=== PATIENT | female | born 1980 | race Caucasian/White ===

== ENCOUNTER 2017-01-13 20:38 | Emergency (ER) | payer SELFPAY ==
[2017-01-14 00:26] LABS: CALCIUM 8.4 mg/dL (8.5-10.1); CARBON DIOXIDE 19.7 mmol/L (21-32); CHLORIDE SERUM 100 mmol/L (98-107); CREATININE SERUM 0.6 mg/dL (0.6-1.0); GFR1 > 60 mL/min; GLUCOSE SERUM 160 mg/dL (74-106); POTASSIUM SERUM 3.6 mmol/L (3.5-5.1); SODIUM SERUM 134 mmol/L (136-145)
[2017-01-14 00:31] LABS: ALKALINE PHOSPHATASE 60 U/L (46-116); BILIRUBIN TOTAL 0.3 mg/dL (0.20-1.00); LIPASE 78 IU/L (73-393); TOTAL PROTEIN, SERUM 7.3 g/dL (6.4-8.2)
[2017-01-14 00:39] LABS: ALBUMIN 3.2 g/dL (3.4-5.0)
[2017-01-14 00:42] LABS: BASOPHIL % 0.5 % (0-2); PLATELET COUNT 237 x10^3mcL (130-400); RED CELL DISTRIBUTION WIDTH 12.9 % (11.5-14.5)
[2017-01-14 00:43] LABS: ALT/SGPT 54 U/L (14-59); AST/SGOT 9 U/L (15-37)
[2017-01-14 01:49] VITALS: BP 124/81
== END 2017-01-14 01:49 | disposition home or self-care (01) ==
LOC: ED 20:38
PROVIDERS: Emergency Medicine
DX: N64.4 Mastodynia (principal)
CPT/HCPCS: 36415

== ENCOUNTER 2018-03-07 01:04 | Emergency (ER) | payer MEDICAID ==
[~2018-03-07] VITALS: Ht 157.5 cm; Wt 75.7 kg
[2018-03-07 01:11] VITALS: Ht 157.5 cm; Wt 75.7 kg
[2018-03-07 02:07] LABS: UA SPECIFIC GRAVITY 1.025 (1.005-1.035); microscopic required? YES; urine erythrocyte 1+ (NEGATIVE)
[2018-03-07 02:07] LABS: BASOPHIL % 0.4 % (0-2); PLATELET COUNT 296 x10^3mcL (130-400); RED CELL DISTRIBUTION WIDTH 12.4 % (11.5-14.5)
[2018-03-07 03:44] VITALS: BP 111/64
== END 2018-03-07 03:44 | disposition home or self-care (01) ==
LOC: ED 01:04
PROVIDERS: Emergency Medicine
DX: O20.0 Threatened abortion (principal); O99.511 Diseases of the respiratory system complicating pregnancy, first trimester; O99.281 Endocrine, nutritional and metabolic diseases complicating pregnancy, first trimester; O24.311 Unspecified pre-existing diabetes mellitus in pregnancy, first trimester; J45.909 Unspecified asthma, uncomplicated; E78.00 Pure hypercholesterolemia, unspecified; E11.9 Type 2 diabetes mellitus without complications; Z3A.01 Less than 8 weeks gestation of pregnancy
CPT/HCPCS: 36415

== ENCOUNTER 2019-01-05 01:49 | Emergency (ER) | payer MEDICAID ==
[~2019-01-05] VITALS: Ht 157.5 cm; Wt 71.2 kg
[2019-01-05 02:03] VITALS: Ht 157.5 cm; Wt 71.2 kg
[2019-01-05 04:30] VITALS: BP 106/55
== END 2019-01-05 04:30 | disposition home or self-care (01) ==
LOC: ED 01:49
DX: J45.901 Unspecified asthma with (acute) exacerbation (principal); E11.9 Type 2 diabetes mellitus without complications; E78.00 Pure hypercholesterolemia, unspecified
CPT/HCPCS: J7613; J7644

== ENCOUNTER 2019-01-09 09:49 | Emergency (ER) | payer MEDICAID ==
[~2019-01-09] VITALS: Ht 157.5 cm; Wt 74.8 kg
[2019-01-09 10:02] VITALS: Ht 157.5 cm; Wt 74.8 kg
[2019-01-09 11:53] VITALS: BP 117/69
== END 2019-01-09 11:53 | disposition home or self-care (01) ==
LOC: ED 09:49
DX: J45.901 Unspecified asthma with (acute) exacerbation (principal); E11.9 Type 2 diabetes mellitus without complications; E78.00 Pure hypercholesterolemia, unspecified

== ENCOUNTER 2019-01-11 16:27 | Emergency (ER) | payer MEDICAID ==
[~2019-01-11] VITALS: Ht 157.5 cm; Wt 74.8 kg
[2019-01-11 16:34] VITALS: Ht 157.5 cm; Wt 74.8 kg
[2019-01-11 18:34] LABS: BASOPHIL % 0.5 % (0-2); PLATELET COUNT 288 x10^3mcL (130-400); RED CELL DISTRIBUTION WIDTH 12.7 % (11.5-14.5)
[2019-01-11 19:00] LABS: CALCIUM 8.6 mg/dL (8.5-10.1); CARBON DIOXIDE 27.2 mmol/L (21-32); CHLORIDE SERUM 103 mmol/L (98-107); CREATININE SERUM 0.7 mg/dL (0.6-1.0); GFR1 > 60 mL/min; GLUCOSE SERUM 105 mg/dL (74-106); POTASSIUM SERUM 4.1 mmol/L (3.5-5.1); SODIUM SERUM 138 mmol/L (136-145)
[2019-01-11 19:04] LABS: ALBUMIN 3.4 g/dL (3.4-5.0); ALKALINE PHOSPHATASE 69 U/L (46-116); ALT/SGPT 36 U/L (14-59); AST/SGOT 21 U/L (15-37); BILIRUBIN TOTAL 0.2 mg/dL (0.20-1.00); TOTAL PROTEIN, SERUM 7.8 g/dL (6.4-8.2)
[2019-01-11 19:12] LABS: FREE T4 0.96 ng/dL (0.76-1.46); FREE THYROXINE INDEX 2.7 ug/dL (1.4-4.5); T4(THYROXINE) 10.5 ug/dL (4.7-13.3)
[2019-01-11 19:30] LABS: T3 TOTAL 1.48 ng/mL
[2019-01-11 21:16] VITALS: BP 116/79
== END 2019-01-11 20:30 | disposition home or self-care (01) ==
LOC: ED 16:27
PROVIDERS: Emergency Medicine
DX: R53.1 Weakness (principal); J45.901 Unspecified asthma with (acute) exacerbation; E11.9 Type 2 diabetes mellitus without complications; E78.00 Pure hypercholesterolemia, unspecified
CPT/HCPCS: 36415; 82962; 84439; J7512; J7613

== ENCOUNTER 2019-05-12 09:37 | Emergency (ER) | payer MEDICAID ==
[~2019-05-12] VITALS: Ht 157.5 cm; Wt 77.6 kg
[2019-05-12 09:43] VITALS: Ht 157.5 cm; Wt 77.6 kg
[2019-05-12 12:00] VITALS: BP 112/64
== END 2019-05-12 12:47 | disposition home or self-care (01) ==
LOC: ED 09:37
DX: J11.1 Influenza due to unidentified influenza virus with other respiratory manifestations (principal); J40 Bronchitis, not specified as acute or chronic; E11.9 Type 2 diabetes mellitus without complications; E78.00 Pure hypercholesterolemia, unspecified
CPT/HCPCS: 87804; J1885

== ENCOUNTER 2019-12-28 20:08 | Emergency (ER) | payer MEDICAID ==
[~2019-12-28] VITALS: Ht 157.5 cm; Wt 78.5 kg
[2019-12-28 20:10] VITALS: Ht 157.5 cm; Wt 78.5 kg
[2019-12-28 22:31] VITALS: BP 122/62
== END 2019-12-28 22:31 | disposition home or self-care (01) ==
LOC: ED 20:08
DX: J45.901 Unspecified asthma with (acute) exacerbation (principal); E11.9 Type 2 diabetes mellitus without complications; E78.00 Pure hypercholesterolemia, unspecified
CPT/HCPCS: J3535; J7512; Q0092

== ENCOUNTER 2020-01-05 19:20 | Emergency (ER) | payer MEDICAID ==
[~2020-01-05] VITALS: Ht 157.5 cm; Wt 76.9 kg
[2020-01-05 19:34] VITALS: Ht 157.5 cm; Wt 76.9 kg
[2020-01-05 20:19] LABS: BASOPHIL % 0.7 % (0-2); PLATELET COUNT 254 x10^3mcL (130-400); RED CELL DISTRIBUTION WIDTH 13.1 % (11.5-14.5)
[2020-01-05 20:26] LABS: CALCIUM 8.7 mg/dL (8.5-10.1); CARBON DIOXIDE 27.8 mmol/L (21-32); CHLORIDE SERUM 97 mmol/L (98-107); CREATININE SERUM 0.6 mg/dL (0.6-1.0); GFR1 > 60 mL/min; GLUCOSE SERUM 168 mg/dL (74-106); POTASSIUM SERUM 3.6 mmol/L (3.5-5.1); SODIUM SERUM 133 mmol/L (136-145)
[2020-01-05 20:31] LABS: ALBUMIN 3.9 g/dL (3.4-5.0); ALKALINE PHOSPHATASE 60 U/L (46-116); ALT/SGPT 96 U/L (14-59); AST/SGOT 54 U/L (15-37); BILIRUBIN TOTAL 0.8 mg/dL (0.20-1.00); TOTAL PROTEIN, SERUM 7.9 g/dL (6.4-8.2)
[2020-01-05 22:02] VITALS: BP 133/80
== END 2020-01-05 21:53 | disposition home or self-care (01) ==
LOC: ED 19:20
PROVIDERS: Emergency Medicine
DX: R42 Dizziness and giddiness (principal); R51.9 Headache, unspecified
CPT/HCPCS: Q0162